=== PATIENT | female | born 1955 | race Caucasian/White ===

== ENCOUNTER 2019-05-05 08:31 | Outpatient (CLI) | payer OTHER, SELFPAY ==
--- NOTE | ~2019-05-05 | MM_ITS ---
EXAMINATION: MM screening omid LT w semea HISTORY: Screening left mammogram, history of right mastectomy TECHNIQUE: Craniocaudal and mediolateral oblique 3-D tomosynthesis images were obtained and synthetic 2-D images were generated. CAD analysis was submitted and interpreted. COMPARISON: 05/04/2018, 04/29/2017, 04/23/2016, 12/19/2014 BREAST PARENCHYMAL COMPOSITION: The breasts are heterogeneously dense, which may obscure small masses . FINDINGS: There is no evidence of suspicious mass, calcification, or architectural distortion to sugg est malignancy in either breast. There has been no suspicious interval change. IMPRESSION: 1. No mammographic evidence of malignancy. 2. Recommend routine screening mammography in one year. BI-RADS Category 1: Negative Reviewed, dictated and finalized at location A. OR WRITER
== END 2019-05-05 08:32 | disposition home or self-care (01) ==
LOC: ANHIMG 08:34
PROVIDERS: PCP Family Medicine; Visit Provider Obstetrics & Gynecology Gynecology
DX: Z12.31 Encounter for screening mammogram for malignant neoplasm of breast (principal)
CPT/HCPCS: 77063; 77067

== ENCOUNTER → 2019-12-07 11:55 | Outpatient (CLI) | payer OTHER, SELFPAY ==
--- NOTE | ~2019-12-07 | XR_ITS ---
XR hip LT min 2V, XR femur LT min 2V 12/07/2019 13:25 Indication: Left hip and leg pain Procedure: 2 views left hip left femur Comparison: No prior studies for comparison. Findings: Mild osteoarthritis of the left hip. Normal mineralization. No acute fracture or traumatic malalignment. No focal soft tissue abnormality. No radiopaque foreign bodies. Impression: 1: Mild osteoarthritis of the left hip. Reviewed, dictated and finalized at location A. Impression: 1: Mild osteoarthritis of the left hip. Impression: 1: Mild osteoarthritis of the left hip.
== END ==
PROVIDERS: PCP Physician Assistant; Visit Provider Physician Assistant
DX: M25.552 Pain in left hip (principal); M16.12 Unilateral primary osteoarthritis, left hip
CPT/HCPCS: 73502; 73552

== ENCOUNTER 2020-07-04 08:02 | Outpatient (CLI) | payer OTHER, SELFPAY ==
--- NOTE | ~2020-07-04 | DEXA_ITS ---
Bone Density Report Name: Ofelia Azul Age: 65 Sex: Female Ethnicity: White Date of : 1955 Indication: monitoring treatment; height loss; cancer; asthma or emphysema; Referring Provider: Leanne Crouch Study: Bone densitometry was performed. Exam Date: July 04, 2020 Accession number: [id number] Bone Density: Region BMD T-score Z-score Classification AP Spine (L1, L2) 0.935 -0.4 1.2 Normal Femoral Neck (Left) 0.728 -1.1 0.3 Osteopenia Total Hip (Left) 0.938 0.0 1.1 Normal Total Hip Bilateral Avg 0.931 -0.1 1.1 Normal Femoral Neck (Right) 0.743 -1.0 0.5 Normal Total Hip (Right) 0.922 -0.2 1.0 Normal World Health Organization criteria for BMD impression classify patients as: Normal (T-score at or above -1.0), Osteopenia (T-score between -1.0 and -2.5), or Osteoporosis (T-score at or below -2.5). 10-year Fracture Risk: FRAX not reported because: Treated for osteoporosis Previous Exams: Region Exam Age BMD T-score BMD Change BMD Change Date g/cm2 vs Baseline vs Previous AP Spine(L1, L2) 07/04/2020 65 0.935 -0.4 -0.079(-7.8%)# -0.027(-2.8%)* 05/30/2016 61 0.963 -0.1 -0.052(-5.1%)# -0.027(-2.7%)# 07/12/2011 56 0.990 0.1 -0.025(-2.4%)# -0.025(-2.4%)# 04/06/2007 52 1.014 0.3 Total Hip(Left) 07/04/2020 65 0.938 0.0 -0.024(-2.5%)# 0.011(1.2%) 05/30/2016 61 0.926 -0.1 -0.035(-3.7%)# -0.037(-3.8%)# 07/12/2011 56 0.963 0.2 0.002(0.2%)# 0.002(0.2%)# 04/06/2007 52 0.961 0.2 Total Hip(Right) 07/04/2020 65 0.922 -0.2 -0.022(-2.3%)# 0.011(1.2%) 05/30/2016 61 0.911 -0.3 -0.033(-3.5%)# -0.003(-0.4%)# 07/12/2011 56 0.914 -0.2 -0.030(-3.1%)# -0.030(-3.1%)# 04/06/2007 52 0.944 0.0 *Denotes significance at 95% confidence level, LSC for AP Spine = 0.022 g/cm2, LSC for Total Hip = 0.027 g/cm2 Clinical Information Provided by Patient: Is being treated for osteoporosis Has used the following medications: Fosamax (i.e. alendronate), Vitamin D, Calcium Has the following medical conditions: Asthma or Emphysema, Cancer Patient maximum height was 68 Menopause Age: 42 Drinks caffeinated beverages Onset of menses at age 15 Number of children 0 Impression: The patient has low bone mass, based on the Left Femoral Neck T-score. The BMD for the AP Spine(L1, L2) decreased, changing by -2.8% since the last DXA exam. Discussion: SIGNIFICANT BONE LOSS OBSERVED. Adherence to therapy
--- NOTE | ~2020-07-04 | MM_ITS ---
EXAMINATION: MM screening omid LT w seema HISTORY: Screening mammogram TECHNIQUE: Craniocaudal and mediolateral oblique 3-D tomosynthesis images were obtained and synthetic 2-D images were generated. CAD analysis was submitted and interpreted. COMPARISON: May 05, 2019 left digital screening mammogram May 04, 2018 left digital screening mammogram April 29, 2017 left digital screening mammogram BREAST PARENCHYMAL COMPOSITION: The breasts are heterogeneously dense, which may obscure small masses . FINDINGS: There is no evidence of suspicious mass, calcification, or architectural distortion to sugg est malignancy in either breast. There has been no suspicious interval change. IMPRESSION: 1. No mammographic evidence of malignancy. 2. Recommend routine screening mammography in one year. BI-RADS Category 1: Negative Reviewed, dictated and finalized at location A.
== END 2020-07-04 08:03 | disposition home or self-care (01) ==
LOC: ANHIMG 08:07
PROVIDERS: PCP Physician Assistant; Visit Provider Obstetrics & Gynecology Gynecology
DX: Z12.31 Encounter for screening mammogram for malignant neoplasm of breast (principal); Z78.0 Asymptomatic menopausal state; M85.852 Other specified disorders of bone density and structure, left thigh
CPT/HCPCS: 77063; 77067; 77080

== ENCOUNTER 2021-09-13 08:55 | Outpatient (CLI) | payer OTHER, SELFPAY ==
--- NOTE | ~2021-09-13 | MM_ITS ---
EXAMINATION: MM scrn omid implant LT w seema HISTORY: Comparison to multiple prior studies sequentially, with oldest reviewed study dated 015. TECHNIQUE: Craniocaudal and mediolateral oblique 3-D tomosynthesis images with implant displacement a nd synthetic 2-D images were generated. Craniocaudal and mediolateral oblique views of the breasts wi thout implant displacement were obtained using full field digital mammography. CAD analysis was submi tted and interpreted. COMPARISON: Comparison to multiple prior studies sequentially, with oldest reviewed study dated 07/2014. BREAST PARENCHYMAL COMPOSITION: The breasts are heterogenously dense, which may obscure small masses FINDINGS: There is no evidence of suspicious mass, calcification, or architectural distortion to sugg est malignancy in the left breast. There has been no suspicious interval change. IMPRESSION: 1. No mammographic evidence of malignancy. 2. Recommend routine screening mammography in one year. BI-RADS Category 1: Negative Reviewed, dictated and finalized at location A.
== END 2021-09-13 08:56 | disposition home or self-care (01) ==
PROVIDERS: PCP Physician Assistant; Visit Provider Nurse Practitioner
DX: Z12.31 Encounter for screening mammogram for malignant neoplasm of breast (principal)
CPT/HCPCS: 77063; 77067

== ENCOUNTER 2022-07-29 09:25 | Outpatient (CLI) | payer MEDICARE, OTHER, SELFPAY ==
--- NOTE | ~2022-07-29 | MR_ITS ---
EXAMINATION: MR breast BI wo/w con INDICATION: Elevated risk of breast cancer, personal history of right breast cancer TECHNIQUE: Axial VIBRANT pre and dynamic post contrast, Sagittal VIBRANT post contrast, Axial T2 STIR ASSET COMPARISON: Prior mammograms dated 09/13/2021, 07/04/2020, and 05/05/2019 CONTRAST: Multihance, 15 cc BREAST COMPOSITION: Heterogeneous fibroglandular tissue FINDINGS: RIGHT BREAST: There is mild background parenchymal enhancement. There are changes of right mastectomy . No abnormal enhancement is identified after contrast administration. There are no pathologically en larged lymph nodes.. LEFT BREAST: There is mild background parenchymal enhancement. No abnormal enhancement is present aft er contrast administration. No pathologically enlarged axillary or internal mammary lymph nodes are i dentified. An intramammary lymph node is noted in the upper outer quadrant of the breast. IMPRESSION: 1. Patient status post right mastectomy, otherwise unremarkable breast MRI. Routine scanner mammograp hy is recommended. BI-RADS Category 2: Benign finding(s). Reviewed, dictated and finalized at location A. IMPRESSION: 1. Patient status post right mastectomy, otherwise unremarkable breast MRI. Rou alexa scanner mammography is recommended. BI-RADS Category 2: Benign finding(s).
== END 2022-07-29 09:26 | disposition home or self-care (01) ==
PROVIDERS: PCP Physician Assistant; Visit Provider Obstetrics & Gynecology Gynecology
DX: Z85.3 Personal history of malignant neoplasm of breast (principal)
CPT/HCPCS: 77049; A9577; C8908

== ENCOUNTER 2022-10-08 00:26 | Day surgery (SDC) | payer MEDICARE, OTHER, SELFPAY ==
[2022-10-02 14:58] VITALS: BMI 25.4
[2022-10-08 07:30] VITALS: BP 148/73; PULSE 85; RESP 20; TEMP 36.2; O2SAT 95
[2022-10-08] MEDS: LACTATED RINGERS 1,000 ML 150 ML IV CONT (07:41)
--- NOTE | 2022-10-08 08:31 | PM.HPGS ---
History of Present Illness History of Present Illness Consent: Risks, benefits, and alternatives have been discussed and questions answered. Patient agrees to proceed with procedure. Chief complaint: hx of colon polyps Narrative: Ofelia Azul is a 67 year old female with colon polyp in 2018 Review of Systems Constitutional: Constitutional: Denies headache(s) and Denies weakness Eyes: Eyes: Denies blurry vision ENT: Reports Normal hearing present, Denies headache(s) and Denies neck pain Cardiovascular: Cardiovascular: Denies chest pain and Denies dyspnea Respiratory: Respiratory: Denies dyspnea Gastrointestinal: Gastrointestinal: Reports no additional gastrointestinal complaints Genitourinary: Genitourinary: Denies dysuria Musculoskeletal: Musculoskeletal: Denies neck pain Integumentary/Breasts: Skin/Breast: Denies dry skin Neurologic: Reports Normal hearing present, Denies headache(s) and Denies weakness Psychiatric: Psychiatric: Denies anxiety Endocrine: Endocrine: Denies change in body appearance Hematologic/Lymphatic: Hematologic/Lymphatic: Denies easy bleeding Allergic/Immunologic: Allergic/Immunologic: Denies urticaria PMFSH Past Medical History Medical History (Updated 10/08/22 @ 08:32 by Joe Loving MD) Colon polyp FH: mastectomy Wrist fracture Family History Family History Sibling Breast cancer Grandparent Cerebrovascular accident Mother Abdominal aneurysm Social History Social History (Updated 02/26/22 @ 13:18 by Huyen Vale CMA) Smoking packs per day: 1 Smoking cigarettes per day: 20.0 Years smoked: 40 Smoking pack-years: 40.00 Smoking status: Former smoker Tobacco type: cigarettes Second hand tobacco smoke exposure: No Smoking end date: 01/02/19 Alcohol intake: current Drinks per week: 3 Substance use: never Substance use type: does not use Lack of Transportation: No Lack of Food: Never True Current Housing: I Have Housing Concerned About Future Housing: No Difficulty Paying Gas/Electric Bills: No Difficulty Paying for Meds: No Currently Unemployed: No Education: Decline to Answer Difficulty w/ Childcare or Family Care: No Living arrangements: with family Spiritual care concerns: No Meds Home Medications and Allergies Home Medications Medication Instructions Recorded Confirmed Type albuterol sulfate 90 mcg/actuation 1 puff inhalation Q4H PRN 08/14/21 10/02/22 History aerosol inhaler (ProAir HFA) Shortness Of Breath Or Wheezing amlodipine 5 mg tablet 5 mg PO DAILY 08/14/21 10/02/22 History cholecalciferol (vitamin D3) 50 50 mcg PO DAILY 08/14/21 10/02/22 History mcg (2,000 unit) capsule clobetasol 0.05 % topical ointment 1 applic topical DAILY 08/14/21 10/02/22 History estradiol 2 mg (7.5 mcg/24 hour) 1 vag ring vaginal [id number] 08/14/21 10/02/22 History vaginal ring (Estring) lactobacillus combination no.9 4 4,000 mmu cells PO DAILY 08/14/21 10/02/22 History billion cell capsule (Adult 50 Plus Probiotic) umeclidinium 62.5 mcg-vilanterol 1 inh inhalation DAILY 08/14/21 10/02/22 History 25 mcg/actuation powdr for inhalation (Anoro Ellipta) acetaminophen 650 mg 650 mg PO BID 10/02/22 10/02/22 History tablet,extended release Allergies Allergy/AdvReac Type Severity Reaction Status Date / Time No Known Allergies Allergy Unknown Verified 10/08/22 07:29 Vital Signs Vital Signs - 24 hr 10/08/22 07:30 Temperature 97.1 F L Pulse Rate 85 Respiratory Rate 20 Blood Pressure 148/73 H Pulse Oximetry 95 Oxygen Delivery Room Air Exam Const: General: comfortable and no acute distress HENMT: Face/Nose/Sinus: Normal nares present Eyes: General: appearance normal, both eyes and all related structures Neck: Neck: no JVD Resp: Auscultation: clear to auscultation bilaterally Cardio: Rate: r
--- NOTE | 2022-10-08 08:39 | WPDANESEPPF ---
Anes - Initial Pre Proc Eval Procedure: Operation Date: 10/08/22 08:45 Proposed Procedures p Colonoscopy - Joe Loving MD Date/Time: 10/08/22 08:39 Surgeon: Joe Loving MD Pre Op Diagnosis: hx of colon polyps Patient Data Age: 67 Gender: F Height: 1.71 m Weight: 74.1 kg Last Vital Signs Temp 97.1 F L 10/08/22 07:30 Pulse 85 10/08/22 07:30 Resp 20 10/08/22 07:30 BP 148/73 H 10/08/22 07:30 Pulse Ox 95 10/08/22 07:30 O2 Del Method Room Air 10/08/22 07:30 Allergies Allergy/AdvReac Type Severity Reaction Status Date / Time No Known Allergies Allergy Unknown Verified 10/08/22 07:29 Home Medications Medication Instructions Recorded Confirmed Type albuterol sulfate 90 mcg/actuation 1 puff inhalation Q4H PRN 08/14/21 10/02/22 History aerosol inhaler (ProAir HFA) Shortness Of Breath Or Wheezing amlodipine 5 mg tablet 5 mg PO DAILY 08/14/21 10/02/22 History cholecalciferol (vitamin D3) 50 50 mcg PO DAILY 08/14/21 10/02/22 History mcg (2,000 unit) capsule clobetasol 0.05 % topical ointment 1 applic topical DAILY 08/14/21 10/02/22 History estradiol 2 mg (7.5 mcg/24 hour) 1 vag ring vaginal [id number] 08/14/21 10/02/22 History vaginal ring (Estring) lactobacillus combination no.9 4 4,000 mmu cells PO DAILY 08/14/21 10/02/22 History billion cell capsule (Adult 50 Plus Probiotic) umeclidinium 62.5 mcg-vilanterol 1 inh inhalation DAILY 08/14/21 10/02/22 History 25 mcg/actuation powdr for inhalation (Anoro Ellipta) acetaminophen 650 mg 650 mg PO BID 10/02/22 10/02/22 History tablet,extended release Patient hx anesthesia problems: none Family hx anesthesia problems: none Results Review: All pre-operative results and documents have been reviewed as part of the pre-operative evaluation. [facility] Past Medical History Medical History (Updated 10/08/22 @ 08:32 by Joe Loving MD) Colon polyp FH: mastectomy Wrist fracture Family History Family History Sibling Breast cancer Grandparent Cerebrovascular accident Mother Abdominal aneurysm Social History Social History (Updated 02/26/22 @ 13:18 by Huyen Vale CMA) Smoking packs per day: 1 Smoking cigarettes per day: 20.0 Years smoked: 40 Smoking pack-years: 40.00 Smoking status: Former smoker Tobacco type: cigarettes Second hand tobacco smoke exposure: No Smoking end date: 01/02/19 Alcohol intake: current Drinks per week: 3 Substance use: never Substance use type: does not use Lack of Transportation: No Lack of Food: Never True Current Housing: I Have Housing Concerned About Future Housing: No Difficulty Paying Gas/Electric Bills: No Difficulty Paying for Meds: No Currently Unemployed: No Education: Decline to Answer Difficulty w/ Childcare or Family Care: No Living arrangements: with family Spiritual care concerns: No Anes - Eval Final PreProcedure Day of Procedure 10/08/22 08:39 Patient weight: normal Heart: regular rate and rhythm Lungs: clear to auscultation Airway: Mallampati scale class II Neurological: alert and oriented Last oral intake: >/= 8 hours ASA classification: III Emergent: no Anesthetic plan: proceed Anesthesia type and monitoring: general GIVS and standard monitoring Results Review: All pre-operative results and documents have been reviewed as part of the pre-operative evaluation. Informed Consent: The patient's anesthetic plan and its attendant risks and benefits were discussed with the patient/family/POA. Questions were solicited and answers provided to the satisfaction of the patient/family/POA.
[2022-10-08 08:58] VITALS: BP 132/63; PULSE 77; RESP 32; O2SAT 99
[2022-10-08 09:08] VITALS: BP 129/66; PULSE 71; RESP 21; O2SAT 99
[2022-10-08 09:18] VITALS: BP 135/74; PULSE 67; RESP 27; O2SAT 99
== END 2022-10-08 09:31 | disposition home or self-care (01) ==
PROVIDERS: PCP Physician Assistant; Visit Provider Internal Medicine Gastroenterology
PROC: 0DJD8ZZ Inspection of Lower Intestinal Tract, Via Natural or Artificial Opening Endoscopic (ICD-10-PCS; CPT 45378; principal; 2022-10-08 08:45)
DX: Z12.11 Encounter for screening for malignant neoplasm of colon (principal); K57.30 Diverticulosis of large intestine without perforation or abscess without bleeding; K64.8 Other hemorrhoids; Z86.010 Personal history of colon polyps; Z79.51 Long term (current) use of inhaled steroids; Z87.891 Personal history of nicotine dependence
CPT/HCPCS: G0105; J2704; J7120

== ENCOUNTER → 2022-11-15 14:43 | Outpatient (CLI) | payer MEDICARE, OTHER, SELFPAY ==
--- NOTE | ~2022-11-15 | XR_ITS ---
EXAMINATION: XR shoulder RT min 2V, XR shoulder LT min 2V DATE: 11/15/2022 15:26 INDICATION: Bilateral shoulder pain TECHNIQUE: 1. AP internally and externally rotated, AP oblique externally rotated and axillary views of the left shoulder were obtained. 2. AP internally and externally rotated, AP oblique externally rotated and axillary views of the righ t shoulder were obtained. COMPARISON: None FINDINGS: Normal alignment at both shoulders. No fracture.Polyarticular osteoarthritis at the bilateral should ers, moderate at the right and mild at the left acromioclavicular joints and mild to moderate at the right and moderate to severe at the left glenohumeral joints. Visualized portion of the lungs are sravani ar. Small amount of atherosclerotic calcific lesions seen along the right subclavian artery. There ar e few surgical clips projecting over the left breast and axilla. Soft tissues are otherwise unremarka ble. 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 Reviewed, dictated and finalized at location A. 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
== END ==
PROVIDERS: PCP Physician Assistant; Visit Provider Physician Assistant
DX: M25.511 Pain in right shoulder (principal); M25.512 Pain in left shoulder; M19.012 Primary osteoarthritis, left shoulder; M19.011 Primary osteoarthritis, right shoulder
CPT/HCPCS: 73030

== ENCOUNTER 2023-12-01 09:40 | Emergency (ER) | payer MEDICARE, OTHER, SELFPAY ==
[2023-12-01 09:55] VITALS: BP 159/71; PULSE 85; RESP 18; TEMP 36.2; O2SAT 98
--- NOTE | 2023-12-01 09:57 | ED.EXTPRO ---
HPI - Extremity Problem General Chief complaint: Extremity Problem,Nontraumatic Stated complaint: RT elbow Pain Time Seen by Provider: 12/01/23 10:03 Source: patient, RN notes reviewed and old records reviewed Mode of arrival: ambulatory Limitations: no limitations History of Present Illness HPI Narrative: [id number] patient presents with complaints of right elbow pain that has been present intermittently for 2 months. Patient is an avid golfer, takes meloxicam daily. She wears a brace to the elbow, and ices after playing golf. She reports that symptoms have been worsening. She denies any injury or trauma. She does admit that she believes her symptoms are due to overuse Related Data Home Medications Medication Instructions Recorded Confirmed albuterol sulfate 90 mcg/actuation 1 puff inhalation Q4H PRN 08/14/21 12/01/23 aerosol inhaler (ProAir HFA) Shortness Of Breath Or Wheezing cholecalciferol (vitamin D3) 50 50 mcg PO DAILY 08/14/21 12/01/23 mcg (2,000 unit) capsule estradiol 2 mg (7.5 mcg/24 hour) 1 vag ring vaginal [id number] 08/14/21 12/01/23 vaginal ring (Estring) lactobacillus combination no.9 4 4,000 mmu cells PO DAILY 08/14/21 12/01/23 billion cell capsule (Adult 50 Plus Probiotic) umeclidinium 62.5 mcg-vilanterol 1 inh inhalation DAILY 08/14/21 12/01/23 25 mcg/actuation powdr for inhalation (Anoro Ellipta) Allergies Allergy/AdvReac Type Severity Reaction Status Date / Time No Known Allergies Allergy Unknown Verified 12/01/23 09:42 Review of Systems Review of Systems: All systems reviewed & are unremarkable except as noted in HPI and below Constitutional: Constitutional: Reports no additional constitutional complaints ENT: Reports system reviewed and no additional complaints, except as documented Cardiovascular: Cardiovascular: Reports no additional cardiovascular complaints Respiratory: Respiratory: Reports no additional respiratory complaints Gastrointestinal: Gastrointestinal: Reports no additional gastrointestinal complaints Musculoskeletal: Musculoskeletal: Reports no additional musculoskeletal complaints and Reports as per HPI PMFSH Past Medical History Medical History Arthritis COPD (chronic obstructive pulmonary disease) History of breast cancer Hypertension Psoriasis Surgical History Surgical History History of reduction surgery of left breast 04/2001 History of removal of Port-a-Cath port a cath placement 1999 failed port a cath removal 01/27/2012 successful removal 2011 History of removal of right breast implant History of removal of tympanostomy tube partial R tube 1984 History of resection of rib History of right breast biopsy 1999 History of right breast implant 2001 adjusted implant 07/15/2001 History of right mastectomy modified radical 1999 History of surgery on wrist R wrist fracture repair 1989 History of total left hip replacement 10/15/2020 History of wisdom tooth extraction 1974 Family History Family History Sibling Breast cancer Grandparent Cerebrovascular accident Mother Abdominal aneurysm Unknown Osteoporosis High cholesterol Asthma COPD (chronic obstructive pulmonary disease) Hypertension Social History Social History Years smoked: 40 Smoking status: Former smoker Tobacco type: cigarettes Second hand tobacco smoke exposure: No Smoking end date: 01/02/19 Alcohol intake: current Drinks per week: 2 Substance use: never Substance use type: does not use Do You Feel Safe in your Home?: Yes Lack of Transportation: No Lack of Food: Never True Current Housing: I Have Housing Concerned About Future Housing: No Difficulty Paying Gas/Electric Bills: No Difficulty
== END 2023-12-01 10:12 | disposition home or self-care (01) ==
PROVIDERS: Emergency Provider Nurse Practitioner Family; PCP Family Medicine
DX: M77.11 Lateral epicondylitis, right elbow (principal); Z87.891 Personal history of nicotine dependence; M19.90 Unspecified osteoarthritis, unspecified site; J44.9 Chronic obstructive pulmonary disease, unspecified; I10 Essential (primary) hypertension; L40.9 Psoriasis, unspecified; Z85.3 Personal history of malignant neoplasm of breast; Z90.11 Acquired absence of right breast and nipple; Z96.642 Presence of left artificial hip joint
CPT/HCPCS: 99213; G0463

== ENCOUNTER 2024-01-02 10:19 | Emergency (ER) | payer MEDICARE, OTHER, SELFPAY ==
--- NOTE | 2024-01-02 10:23 | ED.URI ---
HPI - URI/Sore Throat General Chief Complaint: Upper Respiratory Infection Stated Complaint: head cold / congestion Time Seen by Provider: 01/02/24 10:30 Source: patient, RN notes reviewed and old records reviewed Mode of arrival: ambulatory Limitations: no limitations History of Present Illness HPI Narrative: 68-year-old female presents to the [facility] with complaints sinus congestion, chills, cough. Symptoms started Friday, 3 days ago. Patient reports a history of COPD states that she is feeling little bit better today however does not wanted to move to her lungs. Has a history of similar symptoms a waist getting worse. States that she did take flu and cold medication Treatments prior to arrival: cold medicine Related Data Home Medications Medication Instructions Recorded Confirmed albuterol sulfate 90 mcg/actuation 1 puff inhalation Q4H PRN 08/14/21 01/02/24 aerosol inhaler (ProAir HFA) Shortness Of Breath Or Wheezing cholecalciferol (vitamin D3) 50 50 mcg PO DAILY 08/14/21 01/02/24 mcg (2,000 unit) capsule estradiol 2 mg (7.5 mcg/24 hour) 1 vag ring vaginal [id number] 08/14/21 01/02/24 vaginal ring (Estring) lactobacillus combination no.9 4 4,000 mmu cells PO DAILY 08/14/21 01/02/24 billion cell capsule (Adult 50 Plus Probiotic) umeclidinium 62.5 mcg-vilanterol 1 inh inhalation DAILY 08/14/21 01/02/24 25 mcg/actuation powdr for inhalation (Anoro Ellipta) Allergies Allergy/AdvReac Type Severity Reaction Status Date / Time No Known Allergies Allergy Unknown Verified 01/02/24 10:22 Review of Systems Review of Systems: All systems reviewed & are unremarkable except as noted in HPI and below Constitutional: Constitutional: Reports as per HPI Eyes: Eyes: Reports no additional eye complaints ENT: Reports as per HPI and Reports nasal congestion Cardiovascular: Cardiovascular: Reports no additional cardiovascular complaints, Denies chest pain and Denies dyspnea Respiratory: Respiratory: Reports as per HPI, Denies chest congestion, Reports cough and Denies dyspnea Gastrointestinal: Gastrointestinal: Reports no additional gastrointestinal complaints, Denies abdominal pain, Denies nausea and Denies vomiting Musculoskeletal: Musculoskeletal: Reports no additional musculoskeletal complaints Integumentary/Breasts: Skin/Breast: Reports system reviewed and no additional complaints, except as docu Neurologic: Reports system reviewed and no additional complaints, except as documented Psychiatric: Psychiatric: Reports no additional psychiatric complaints Allergic/Immunologic: Allergic/Immunologic: Reports no additional allergic/immunologic complaints [facility] Past Medical History Medical History Arthritis COPD (chronic obstructive pulmonary disease) History of breast cancer Hypertension Psoriasis Surgical History Surgical History History of reduction surgery of left breast 04/2001 History of removal of Port-a-Cath port a cath placement 1999 failed port a cath removal 01/27/2012 successful removal 2011 History of removal of right breast implant History of removal of tympanostomy tube partial R tube 1983 History of resection of rib History of right breast biopsy 1999 History of right breast implant 2001 adjusted implant 07/15/2001 History of right mastectomy modified radical 1999 History of surgery on wrist R wrist fracture repair 1989 History of total left hip replacement 10/15/2020 History of wisdom tooth extraction 1974 Family History Family History Sibling Breast cancer Grandparent Cerebrovascular accident Mother Abdominal aneurysm Unknown Osteoporosis High cholesterol Asthma COPD (chronic obstructive pulmonary disease) Hypertension Social History Social History (Reviewed 01/02/24 @ 14:02 by
[2024-01-02 10:31] VITALS: BP 139/68; PULSE 77; RESP 16; TEMP 36.7; O2SAT 97
[2024-01-02 10:51] LABS: EDCOVIDSCREEN Negative (Negative); EDINFLUASCREEN Negative (Negative); EDINFLUBSCREEN Negative (Negative)
== END 2024-01-02 11:01 | disposition home or self-care (01) ==
PROVIDERS: Emergency Provider Nurse Practitioner; PCP Family Medicine
DX: J01.90 Acute sinusitis, unspecified (principal); J44.9 Chronic obstructive pulmonary disease, unspecified; I10 Essential (primary) hypertension; Z79.899 Other long term (current) drug therapy; Z20.822 Contact with and (suspected) exposure to COVID-19; Z85.3 Personal history of malignant neoplasm of breast; Z87.891 Personal history of nicotine dependence
CPT/HCPCS: 87426; 87804; 99213; G0463

== ENCOUNTER 2024-01-16 09:59 | Outpatient (CLI) | payer MEDICARE, OTHER, SELFPAY ==
--- NOTE | ~2024-01-16 | XR_ITS ---
Right Shoulder Technique: AP and scapular Y views were obtained. Clinical History: Osteoarthritis Findings: No fracture or dislocation is seen. Osseous alignment is anatomic. The glenohumeral and acr omioclavicular joint spaces are preserved. Soft tissues are unremarkable. Impression: Unremarkable right shoulder radiographs. Reviewed, dictated and finalized at location . Impression: Unremarkable right shoulder radiographs.
--- NOTE | ~2024-01-16 | XR_ITS ---
Left Shoulder Technique: AP and scapular Y views were obtained. Clinical History: Osteoarthritis Findings: No fracture or dislocation is seen. Osseous alignment is anatomic. The glenohumeral joint d emonstrates mild degenerative change. There is minimal AC joint degenerative change. Soft tissues are unremarkable. Impression: Degenerative changes, as noted above. Reviewed, dictated and finalized at location . Impression: Degenerative changes, as noted above.
== END 2024-01-16 10:00 | disposition home or self-care (01) ==
LOC: ANHIMG 10:04
PROVIDERS: PCP Family Medicine; Visit Provider Physician Assistant Surgical
DX: M19.011 Primary osteoarthritis, right shoulder (principal); M19.012 Primary osteoarthritis, left shoulder
CPT/HCPCS: 73030

== ENCOUNTER 2024-04-07 08:10 | Emergency (ER) | payer MEDICARE, OTHER, SELFPAY ==
[2024-04-07 08:27] VITALS: BP 163/84; PULSE 94; RESP 16; TEMP 37.1; O2SAT 97
--- NOTE | 2024-04-07 08:44 | ED.GENADULT ---
HPI - General Adult General Chief complaint: Ear Stated complaint: lt earache, skin tear left arm Time Seen by Provider: 04/07/24 08:26 Source: patient and RN notes reviewed Mode of arrival: ambulatory Limitations: no limitations History of Present Illness HPI narrative: Patient presents today complaining a skin tear to her left forearm that occurred 4 days ago when she ran into a door frame at home. She has been applying Neosporin and dressing the area. She is not up-to-date on her tetanus vaccine. She is also complaining of drainage from the left ear. She has had issues in the ear for a couple of years and has seen ENT in the past. She has previously been prescribed an ear drop of neomycin polymyxin and hydrocortisone and states this has worked. Denies pain or decreased hearing. She has been applying vaseline and a cotton ball to the canal to keep it dry as previously directed. She is waiting for an ENT appointment in June. Denies any additional URI symptoms. Related Data Home Medications ?Medication ?Instructions ?Recorded ?Confirmed ?Last Taken ?Type cholecalciferol (vitamin D3) 50 50 mcg PO DAILY 08/14/21 04/07/24 Unknown History mcg (2,000 unit) capsule estradiol 2 mg (7.5 mcg/24 hour) 1 vag ring vaginal [id number] 08/14/21 04/07/24 Unknown History vaginal ring (Estring) lactobacillus combination no.9 4 4,000 mmu cells PO DAILY 08/14/21 04/07/24 Unknown History billion cell capsule (Adult 50 Plus Probiotic) umeclidinium 62.5 mcg-vilanterol 1 inh inhalation DAILY 08/14/21 04/07/24 Unknown History 25 mcg/actuation powdr for inhalation (Anoro Ellipta) clobetasol 0.05 % topical ointment 1 applic topical PRN 04/07/24 04/07/24 Unknown History clotrimazole-betamethasone 1 1 applic topical Q12H 04/07/24 04/07/24 Unknown History %-0.05 % topical cream Allergies Allergy/AdvReac Type Severity Reaction Status Date / Time No Known Allergies Allergy Unknown Verified 04/07/24 08:24 Review of Systems Review of Systems: CONSTITUTIONAL: Denies body aches, fever, chills, or sweats. EYES: Denies visual changes, redness, or discharge. ENT: Denies rhinorrhea, congestion, sore throat, or otalgia.+ left ear drainage CARDIOVASCULAR: Denies chest pain, palpitations, or edema. RESPIRATORY: Denies cough or dyspnea. GASTROINTESTINAL: Denies abdominal pain, nausea, vomiting, or diarrhea. GENITOURINARY: Denies dysuria or hematuria. SKIN: + left forearm skin tears. MUSCULOSKELETAL: Denies back pain, joint pain, or myalgia. NEUROLOGIC: Denies headache, numbness, tingling, or weakness. PSYCH: Denies depression or anxiety. [facility] Past Medical History Medical History Hypertension Psoriasis History of breast cancer COPD (chronic obstructive pulmonary disease) Arthritis Surgical History Surgical History History of resection of rib History of total left hip replacement 10/15/2020 History of removal of right breast implant History of reduction surgery of left breast 04/2001 History of right breast implant 2001 adjusted implant 07/15/2001 History of right mastectomy modified radical 1999 History of removal of Port-a-Cath port a cath placement 1999 failed port a cath removal 01/27/2012 successful removal 2011 History of right breast biopsy 1999 History of surgery on wrist R wrist fracture repair 1989 History of removal of tympanostomy tube partial R tube 1984 History of wisdom tooth extraction 1974 Family History Family History Sibling Breast cancer Grandparent Cerebrovascular accident Mother Abdominal aneurysm Unknown Osteoporosis High cholesterol Asthma COPD (chronic obstructive pulmonary disease) Hypertension Social History Social History Years smoked: 40 Smoking status: Former smoker Tobacco type: cigarettes Second hand tobacco smoke exposure: No Smoking end date: 01/02/19 Alcohol intake: current Drinks per week: 2 Substance use: never Substance use type: does not use Do You Feel Safe in your Home?: Yes Lack of Transportation: No Lack of Food: Never True Current Housing: I Have Housing Concerned About Future Housing: No Difficulty Paying Gas/Electric Bills: No Difficulty Paying for Meds: No Currently Unemployed: No Education: High School Diploma/GED Difficulty w/ Childcare or Family Care: No Living arrangements: with family Occupation/Education: retired Gender identity (if verbalized by the patient): Female Sexual Orientation (if Verbalized by the Patient): Straight or Heterosexual Spiritual care concerns: No Comments At time of signature, I have reviewed and agree with nursing past medical, surgical, social and family history unless otherwise noted. Please see nursing chart for further information. There is no relevant family history pertinent to the presenting complaint Exam Narrative: GENERAL: Well-appearing, well-nourished, and in no acute distress. HEAD: Normocephalic, atraumatic. EYES: EOMI. No redness or drainage. Conjunctivae normal. ENT: Mucous membranes pink and moist. Nares clear. Left ear: No movement or tragal tenderness. Some mild irritation and moistness of the ear canal without edema. Left TM is very slightly injected, and does show purulent discharge that takes up half of the TM. NECK: Normal AROM. Supple. No lymphadenopathy. CHEST: No respiratory distress. EXTREMITIES: Normal range of motion. No edema. Three skin tears of the left forearm each measuring approximately 2 x 2 cm, superficial and almost fully dry. No signs of infection. SKIN: Warm, dry, no rash. Capillary refill normal. Normal skin turgor. NEURO: No focal deficits. Alert and oriented x3. Gait steady. PSYCH: Normal affect. No signs of depression or anxiety. Course Course Level of Care: Express Care Visit Vital Signs Vital signs: Vital Signs Temperature 98.7 F 04/07/24 08:27 Pulse Rate 94 04/07/24 08:27 Respiratory Rate 16 04/07/24 08:27 Blood Pressure 163/84 H 04/07/24 08:27 Pulse Oximetry 97 04/07/24 08:27 Temperature 98.7 F 04/07/24 08:27 Pulse Rate 94 04/07/24 08:27 Respiratory Rate 16 04/07/24 08:27 Blood Pressure 163/84 H 04/07/24 08:27 Pulse Oximetry 97 04/07/24 08:27 Reviewed Medical Decision Making MDM Narrative Medical decision making narrative: Tetanus shot updated. Patient will be given a prescription of her previous ear drops as well as some Augmentin for the suppurative otitis media. Skin tears appear to be on their way healing properly, but anticipatory guidance given for both the ear and skin tears. Differential Diagnosis Differential Diagnosis: Otitis media, otitis externa, ruptured TM, serous otitis, cerumen impaction, seborrheic dermatitis, eczema, skin tear, cellulitis Vital Signs Vital Signs: Vital Signs Temperature 98.7 F 04/07/24 08:27 Pulse Rate 94 04/07/24 08:27 Respiratory Rate 16 04/07/24 08:27 Blood Pressure 163/84 H 04/07/24 08:27 Pulse Oximetry 97 04/07/24 08:27 Temperature 98.7 F 04/07/24 08:27 Pulse Rate 94 04/07/24 08:27 Respiratory Rate 16 04/07/24 08:27 Blood Pressure 163/84 H 04/07/24 08:27 Pulse Oximetry 97 04/07/24 08:27 Critical Care Time Critical Care Time Critical Care Time: No Discharge Plan Discharge Clinical Impression: Acute suppur left otitis media w/o spontan rupture tympanic membrane, Skin tear of forearm without complication Patient Disposition: Home, Self-Care Condition: Stable Instructions: Antibiotic Form, Ear Infection (ED), Skin Tear (ED) Additional Instructions: Please take the Augmentin for your ear infection and use ear drops as directed. Wash your skin tears once daily with soap and water and keep covered until healed or scabbed over. You may apply some Vaseline or Neosporin daily. Monitor for any signs of infection such as redness, swelling, increased pain or drainage, and see your doctor if you note any. Your tetanus shot has been updated today. Your blood pressure was elevated above 120/80 today at Urgent Care. This puts you above the threshold for follow up. Please schedule a followup visit with your personal physician as soon as possible, for further evaluation and treatment. Even blood pressure exceeding 120/80 may indicate pre-hypertension. Patient Language: Maltese Prescriptions: New amoxicillin-pot clavulanate 875-125 mg tablet 1 tablet PO Q12H 7 Days Qty: 14 0RF [id number] 3.5-10,000-1 mg/mL-unit/mL-% drops,suspension 4 drp LEFT EAR Q8H 7 Days Qty: 10 0RF No Action methylprednisolone [Medrol (Mike)] 4 mg tablets,dose pack See Rx Instructions PO .COMPLEX Qty: 21 0RF Rx Instructions: orally per package directions clobetasol 0.05 % ointment 1 applic TOPICAL PRN clotrimazole-betamethasone 1-0.05 % cream 1 applic TOPICAL Q12H Sebex 2-2 % shampoo 1 applic topical DAILY Qty: 118 5RF Rx Instructions: massage into wet scalp; leave on for 5 mins ; rinse; repeat application ketoconazole 2 % shampoo 1 applic topical 3XW Qty: 120 0RF Anoro Ellipta 62.5-25 mcg/actuation blister with device 1 inh inhalation DAILY Estring 2 mg (7.5 mcg /24 hour) ring 1 vag ring vaginal [id number] Adult 50 Plus Probiotic 4 billion cell capsule 4,000 mmu cells PO DAILY Rx Instructions: administer with a meal cholecalciferol (vitamin D3) 50 mcg (2,000 unit) capsule 50 mcg PO DAILY meloxicam 15 mg tablet See Rx Instructions .ROUTE .COMPLEX Qty: 30 5RF Dose Instruction: TAKE 1 TABLET BY MOUTH DAILY Rx Instructions: TAKE 1 TABLET BY MOUTH DAILY amlodipine 5 mg tablet 5 mg PO DAILY Qty: 90 1RF albuterol sulfate 90 mcg/actuation HFA aerosol inhaler 1 puff inhalation Q4H PRN (Reason: Shortness Of Breath Or Wheezing) Qty: 8.5 0RF Follow-up/Referrals: Ritesh Casanova MD [Primary Care Provider] - Time of Disposition: 08:53
[2024-04-07] MEDS: TETANUS,DIPHTHERIA,AC PERTUSSIS ADULT (0.5 ML) BOOSTRIX IM (08:53)
== END 2024-04-07 08:58 | disposition home or self-care (01) ==
PROVIDERS: Emergency Provider Nurse Practitioner; PCP Family Medicine
DX: H66.002 Acute suppurative otitis media without spontaneous rupture of ear drum, left ear (principal); S51.812A Laceration without foreign body of left forearm, initial encounter; W22.09XA Striking against other stationary object, initial encounter; Z23 Encounter for immunization; I10 Essential (primary) hypertension; J44.9 Chronic obstructive pulmonary disease, unspecified; M19.90 Unspecified osteoarthritis, unspecified site; L40.9 Psoriasis, unspecified; Z85.3 Personal history of malignant neoplasm of breast; Z90.11 Acquired absence of right breast and nipple; Z96.642 Presence of left artificial hip joint
CPT/HCPCS: 90471; 90715; 99213; G0463

== ENCOUNTER 2024-11-11 08:53 | Outpatient (CLI) | payer MEDICARE, OTHER, SELFPAY ==
--- NOTE | ~2024-11-11 | DEXA_ITS ---
Bone Density Report Name: HAIDER PICKARD Age: 69 Sex: Female Ethnicity: White Date of : 1955 Indication: postmenopausal; screening for osteoporosis; height loss; cancer; Referring Provider: NISHI ABURTO Study: Bone densitometry was performed. Exam Date: November 11, 2024 Accession number: [id number] Bone Density: Region BMD T-score Z-score Classification AP Spine(L2, L3, L4) 1.195 1.1 3.1 Normal Femoral Neck (Right) 0.728 -1.1 0.6 Osteopenia Total Hip (Right) 0.898 -0.4 1.0 Normal World Health Organization criteria for BMD impression classify patients as: Normal (T-score at or above -1.0), Osteopenia (T-score between -1.0 and -2.5), or Osteoporosis (T-score at or below -2.5). 10-year Fracture Risk(1): Major Osteoporotic Fracture 8.7% Hip Fracture 0.8% Reported Risk Factors: [place] (), Neck BMD=0.728, BMI=24.5 (1) FRAX(R) Version 3.08. Fracture probability calculated for an untreated patient. Fracture probability may be lower if the patient has received treatment. Clinical Information Provided by Patient: Has used the following medications: Fosamax (i.e. alendronate), Vitamin D, Calcium Has the following medical conditions: Cancer Patient maximum height was 68 Menopause Age: 42 Does not regularly consume dairy products Drinks caffeinated beverages Onset of menses at age 14 Number of children 0 Impression: The patient has low bone mass, based on the Right Femoral Neck T-score. The patient has an estimated ten-year risk of hip fracture of 0.8% and an estimated ten-year risk of major fracture of 8.7%, based on the WHO FRAX algorithm. Discussion: BONE DENSITY IS LOW AT ONE OR MORE SKELETAL SITES. This patient's lowest T-score is low at one or more skeletal sites. It meets the World Health Organization's (WHO) criteria for ?low bone mass? (T-score between -1.0 and -2.5). The patient's 10-year risk of fracture as calculated by FRAX is less than the threshold where pharmacological therapy is recommended by the National Osteoporosis Foundation (NOF). However, all treatment decisions require clinical judgment and consideration of individual patient factors, including patient preferences, comorbidities, previous drug use, risk factors not captured in the FRAX model (e.g., frailty, falls, vitamin D deficiency, increased bone turnover, interval significant decline in bone density) and possible under or overestimation of fracture risk by FRAX. The patient should follow a healthful lifestyle (good nutrition with adequate calcium and vitamin D, and appropriate weight-bearing exercise). Follow-Up: Consider repeating this study in 2 to 3 years to reassess this patient's status, or sooner if there is some new clinical indication. Reported by: RODY on 11/11/2024 9:37:00 AM. Reviewed, dictated and finalized at location A.
--- OUTSIDE RECORDS SUMMARY | 2024-11-11 08:56 | XMS_ITS | Continuity of Care Document ---
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 It does not include entries that were removed or entered in error. Problem Status Onset Date Problem Type Date of Resolution Comments Source Hearing loss Active Condition [facility] Medications Combined list of outpatient medications from Department of [facility] and [facility] facilities.Medications provided include 1) outpatient medications from the last 15 months, and 2) patient-reported medications. Medication Details Route Status Patient Instructions Prescription Expires Prescription Number Last Dispense Date Ordering Provider Order Date Order Qty Source CLOBETASOL PROPIONATE (clobetasol propionate) , 0.05 %, OINT. (G), TOPICAL, ENCUBE ETHICALS, 15 g TUBE Active [id number] 2023 45 Pharmac y Data Transac tion Service Facilit y Immunizations Combined list of available immunizations from the Department of Defense and Veterans Affairs facilities. Immunization Series Date Given Administered By Site Reaction Lot Number CVX Code Drug Principal Trainer Status Comments Source influenza virus vaccine, whole virus 1 2000 Unknown, Provider [id number] Sanofi Pasteur ([facility]) complet ed influenza virus vaccine, whole virus [facility] tuberculin skin test; purified protein derivative solution, intradermal 1 1999 Unknown, Provider [id number] Curtis (CON) complet ed tuberculi n skin test; purified protein derivativ e solution, intraderm al DoD influenza virus vaccine, whole virus 1 1998 Unknown, Provider [id number] Curtis (CON) complet ed influenza virus vaccine, whole virus DoD influenza virus vaccine, whole virus 1 1997 Unknown, Provider [id number] Sae (Inactive) ([place]) complet ed influenza virus vaccine, whole virus DoD hepatitis A vaccine, adult dosage 2 1997 Unknown, Provider [id number] [address] [place] [address] (SKB) complet ed hepatitis A vaccine, adult dosage DoD measles, mumps and rubella virus vaccine 1 1996 Unknown, Provider 03 () complet ed measles, mumps and rubella virus vaccine DoD influenza virus vaccine, whole virus 1 1996 Unknown, Provider [id number] 16 Sae (Inactive) ([place]) complet ed influenza virus vaccine, whole virus DoD hepatitis A vaccine, adult dosage 1 1996 Unknown, Provider 52 () complet ed hepatitis A vaccine, adult dosage DoD tuberculin skin test; purified protein derivative solution, intradermal 1 1996 Unknown, Provider CON 96 Curtis (CON) complet ed tuberculi n skin test; purified protein derivativ e solution, intraderm al DoD tetanus and diphtheria toxoids, adsorbed, preservative free, for adult use (2 Lf of tetanus toxoid and 2 Lf of diphtheria toxoid) 1 1995 Unknown, Provider 09 () complet tetanus and diphtheri a toxoids, adsorbed, preservat fawn free, for adult use (2 Lf of tetanus toxoid and 2 Lf of diphtheri a toxoid) DoD tetanus and diphtheria toxoids, adsorbed, preservative free, for adult use (2 Lf of tetanus toxoid and 2 Lf of diphtheria toxoid) 1 1995 Unknown, Provider 09 () complet ed tetanus and diphtheri a toxoids, adsorbed, preservat fawn free, for adult use (2 Lf of tetanus toxoid and 2 Lf of diphtheri a toxoid) DoD yellow fever vaccine 1 1988 Unknown, Provider 37 () complet yellow fever vaccine [facility] yellow fever vaccine 1 1988 Unknown, Provider 37 () complet yellow fever vaccine [facility] typhoid vaccine, parenteral, acetone-kille d, dried ([place] ) 3 1987 Unknown, Provider 53 () complet typhoid vaccine, parentera l, acetone-k illed, dried ([place] ) [facility] trivalent poliovirus vaccine, live, oral 1 1978 Unknown, Provider 02 () complet trivalent polioviru s vaccine, live, oral [facility] trivalent poliovirus vaccine, live, oral 1 1978 Unknown, Provider 02 () complet trivalent polioviru s vaccine, live, oral [facility] Encounters Combined list of: 1) Encounters from Department of Veterans Affairs facilities going backup to the last 18 months, not all [place] inpatient encounters are included; 2) Encounters from the Department of Defense facilities going backup to 280 months. Location Location Details Encounter Type Encounter Number Reason For Visit Attending Provider ADM Date DC Date Status Disposition Source [facility] Outpatient Encounter [id number] 6 11/07 [facility] Procedures Combined list of: 1) Procedures from Department of Veterans Affairs facilities going back up to thelast 18 months, not all [place] non-surgical procedures are included; 2) All procedures from the Department of Defense facilities. Procedure Procedure Type Code Date Perfomer Comments Sourc e Collection Of Blood Specimen Fr Implant Venous Acce Device Collection Of Blood Specimen Fr Implant Venous Access Device [id number] 07/14/2003 ARNOLD GARCIA Injection, heparin sodium, (heparin lock flush), per 10 units 07/14/[address] Supervised Injection Intravenous Supervised Injection Intravenous [id number] 07/14/2003 ARNOLD GARCIA INJECTION, HEPARIN SODIUM, (HEPARIN LOCK FLUSH), PER 10 UNITS 07/14/2003 [facility]D INJECTION, HEPARIN SODIUM, (HEPARIN LOCK FLUSH), PER 10 UNITS 06/22/2003 DoD INJECTION, HEPARIN SODIUM, (HEPARIN LOCK FLUSH), PER 10 UNITS 02/22/2003 DoD INJECTION, HEPARIN SODIUM, (HEPARIN LOCK FLUSH), PER 10 UNITS 11/04/2002 DoD INJECTION, HEPARIN SODIUM, (HEPARIN LOCK FLUSH), PER 10 UNITS 09/01/2002 DoD INJECTION, HEPARIN SODIUM, (HEPARIN LOCK FLUSH), PER 10 UNITS 06/28/2002 [facility]D COLLECTION OF BLOOD SPECIMEN FROM A COMPLETELY IMPLANTABLE VENOUS ACCESS DEVICE 02/24/2002 DoD Social History Combined list of available smoking, tobacco, and other social history from Department of Defense and Veterans Affairs facilities. Social History Type Response Date Comment Sour e This section is an empty social history section. [facility]D
--- OUTSIDE RECORDS SUMMARY | 2024-11-11 08:58 | XMS_ITS | Clinical Summary ---
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 255 g 06/02/2017 Active Social History Tobacco Use Types Packs/Day Years Used Date Smoking Tobacco: Never Assessed Comments Unknown Sex and Gender Information Value Date Recorded Sex Assigned at Not on file Legal Sex Female 8:02 PM CDT Gender Identity Not on file Sexual Orientation Not on file Plan of Treatment Health Maintenance Due Date Last Done Comments Hepatitis C Virus (HCV) Screening 1955 TdaP Immunization 1955 Cologuard 2002 Immunochemical Fecal Occult Blood 2002 Pneumococcal Immunization (5 0+ years) (1 of 1 - PCV) 2007 Zoster Immunization (1 of 2) 2007 Colonoscopy 08/07/2022 08/07/2017 Colorectal Cancer Screening 08/07/2022 SARS-COV-2 Immunization (1 - 2023- season) 2023 Influenza Immunization (#1) 2024 Respiratory Syncytial Virus (RSV) Immunization (Adult) (1 - 1-dose 75+ series) 01/06/2032 Hepatitis B Immunization Aged Out No longer eligible based on patient's age to complete this topic Human Papillomavirus (HPV) Immunization Aged Out No longer eligible b ased on patient's age to complete this topic Meningococcal Immunization (ACWY) Aged Out No longer eligible based on patient's age to complete this topic Rotavirus Immunization Aged Out No lo nger eligible based on patient's age to complete this topic Procedures Procedure Name Priority Date/Time Associated Diagnosis Comments HM COLONOSCOPY Routine 08/07/2017 from Last 3 Months or Most Recently Relevant to Health Maintenance Results * HM COLONOSCOPY (08/07/2017) Giovanni Conti DO PROCEDURE/MINOR SURGICAL ORDERA BLES Final Result from Last 3 Months or Most Recently Relevant to Health Maintenance Insurance [facility] Care Teams Beef Cattle Farmer Relationship Specialty Start Date End Date Ritesh Casanova MD [address] [place] [id number] PCP - General Family Medicine 05/23/17 Leanne Crouch MD 2022 [address] [address] Obstetrics & Gynecology 05/23/17
--- OUTSIDE RECORDS SUMMARY | 2024-11-11 08:58 | XMS_ITS | Clinical Summary ---
Author Organization [facility] Address [address] [place] [address] Care Team Providers Care Battery Wrecker Operator Name Role Phone Ritesh Casanova MD Primary Care Provider [phone] Allergies No known active allergies Medications calcium carbonate-vitami n D3 (Caltrate 600 plus D) 600 mg (1,500 mg)-800 unit tablet,chewableI ndications:Hypoc alcemia Prevention Take 1 capsule by mouth nightly 5 Active cholecalciferol (VITAMIN D-3) 2000 unit capsuleIndicatio ns:Vitamin D Deficiency Take 2,000 Units by mouth nightly 5 Active Lactobac no.41/Bifidobact no.7 (PROBIOTIC-10 ORAL) Take 1 capsule by mouth nightly 5 Active ProAir HFA 90 mcg/actuation inhaler Inhale 1 puff as needed for shortness of breath 0 Active Anoro Ellipta 62.5-25 mcg/actuation blister with deviceIndication s:Bronchospasm Prevention with COPD Inhale 1 puff every morning 0 Active clotrimazole-bet amethasone (LOTRISONE) creamIndications :skin inflammation Apply 1 application topically as needed 1 Active amoxicillin 500 mg capsule TAKE 4 CAPSULES BY MOUTH 1 HOUR PRIOR TO DENTAL APPOINTMENT 2 Active Estring 2 mg (7.5 mcg /24 hour) vaginal ring 2 Active amLODIPine (NORVASC) 5 mg tablet 2 Active clobetasoL (TEMOVATE) 0.05 % ointment 2 Active Active Problems Problem Noted Date Diagnosed Date Cholesteatoma of left external auditory canal Disorder of left external ear 04/02/2022 Sensorineural hearing loss (SNHL) of both ears 0 04/02/2022 HTN (hypertension) 10/19/2020 Primary osteoarthritis of left hip 09/25/2020 Overview (09/25/2020): Added automatically from request for surgery [id number] Primary osteoarthritis of both hips 09/25/2020 Mixed restrictive and obstructive lung disease 0 03/30/2020 Multiple lung nodules 03/30/2020 Abnormal PFT 09/29/2019 Cigarette nicotine dependence in remission 09/28 KHAN (dyspnea on exertion) 09/29/2019 Hx of radiation therapy 09/29/2019 Breast cancer, female 07/13/2014 Encounters Date Type Department Care Team Description 09/08/2024 Telephone [facility] Medicine Otolaryngology [address] [place] [address] Maria Esther Dallas, from Last 3 Months Immunizations Immunization Administration Dates Next Due Influenza, Quadrivalent, Spl it, Intramuscular 12/21/2019,12/08/2018 Influenza, Quadrivalent, Spl it, Preservative Free, Intramuscular 12/08/2018 Influenza, Unspecified 12/21/2019,2014,07/14/2013,01/13 Amos (J&J) SARS-CoV-2 Vaccination 05/23/2020 Tdap 07/27/2013 Surgical History Surgery Date Site/Laterality Comments WRIST FRACTURE SURGERY [place] FLUORO GUIDED INJECTION HIP LEFT 06/16/2020 Left TUBAL LIGATION MASTECTOMY Right BONE RESECTION, RIB PORTACATH PLACEMENT BREAST SURGERY Oct 1999 Medical History Medical History Date Comments Arthritis Cancer (HCC) Right Emphysema of lung Hypertension Heart disease 2018 Tinnitus 2001 HL (hearing loss) 2001 History of chemotherapy 1999 Ear problems 2021 Family History Medical History Relation Name Comments Hypertension Brother Older brother Lung disease Father Scoliosis Father Stroke Maternal Grandmother grandmother Coronary artery disease Mother mom Heart disease Mother mom Hypertension Mother mom Lung disease Mother mom Snoring Mother mom Cancer Sister older sister Gout Sister older sister Hypertension Sister older sister Anesthesia problems Neg Hx Relation Name Status Comments Brother Older brother Father Maternal Grandmother grandmother Mother mom Sister older sister Social History Tobacco Use Types Packs/Day Years Used Date Smoking Tobacco: Former Cigarettes 1 46.8 1 973 - 12/16/2018 Smokeless Tobacco: Never Alcohol Use Standard Drinks/Week Comments Yes 0 (1 standard drink = 0.6 oz pur e alcohol) AUDIT-C Answer Date Recorded Q1: How often do you have a drink containing alc ohol? 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 Gender Identity Female 09/24/2020 4:46 PM CDT Sexual Orientation Not on file Occupation Industry Job Start Date Job End Date ret Not on file Not on file Not on file Obstetrics History Last Filed Vital Signs Vital Sign Reading Time Taken Comments Blood Pressure 122/63 10/25/2020 7:42 AM CDT Pulse 69 10/25/2020 7:42 AM CDT Temperature 36.6 C (97.9 F) 10/25/2020 7:42 AM CDT Respiratory Rate 16 10/25/2020 7:42 AM CDT Oxygen Saturation 96% 10/25/2020 7:42 AM CDT Inhaled Oxygen Concentration - - Weight 77.6 kg (171 lb) 10/24/2020 8:16 AM CDT Height 170.2 cm (5' 7) 10/24/2020 8:16 AM CDT Body Mass Index 26.78 10/24/2020 8:16 AM CDT Plan of Treatment Health Maintenance Due Date Last Done Comments Breast Cancer Screening-Mammogram 1955 Colon Cancer Screening-Colonoscopy 1955 Hepatitis C Screening 1955 Osteoporosis Screening-Bone Density Scan 1955 Hepatitis B Screening 1975 Pneumococcal vaccine 65+ (1 of 2 - PCV) 01/06/1976 Lung Cancer Screening 2007 Zoster Vaccine (1 of 2) 2007 Depression Screening 09/25/2021 09/25/2020, 09/26/19 21 Fall Risk Assessment 10/25/2021 10/25/2020 Well Visit 65+ 2022 DTaP/Tdap/Td Vaccine (2 - Td or Tdap) 07/28/2023 07/27/2013 Covid-19 Vaccine (2 - 2023-2 5 season) 2023 05/23/2020 Influenza Vaccine (#1) 2024 , 12/21/2019, 12/08/2018, Additional history exists Medical Devices Implanted Type Area Aircraft Maintenance Manager Device Identifier Shelf Expiration Date Model / Serial / Lot [employer] [id number] Acetabular Bi-Mentum Od51mm Femoral Proximal Press Fit - [id number] Implanted:Qty: 1 on 10/24/2020 by Taras Mckoy MD at [facility] Left: Hip [employer] [id number] 04/16/2024 [id number] / / [id number] [employer] [id number] Actis L107 Mm Collar Hip 6 High Offset Stem Femoral - [id number] Implanted:Qty: 1 on 10/24/2020 by Taras Mckoy MD at [facility] Left: Hip [employer] [id number] 08/14/2030 [id number] / / [id number] [employer] [id number] Articul/Ryley 28mm Cementless Hip +5mm 12/14 Taper Head Femoral Latex Free - [id number] Implanted:Qty: 1 on 10/24/2020 by Taras Mckoy MD at [facility] Left: Hip [employer] [id number] 07/14/2025 [id number] / / [id number] [employer] [id number] Liner Acetabular Bi-Mentum Polyethylene Od51mm Id28mm Femoral Proximal - [id number] Implanted:Qty: 1 on 10/24/2020 by Taras Mckoy MD at [facility] Left: Hip [employer] [id number] 03/16/2025 [id number] / / [id number] Insurance [facility] LIFE MEDICARE [employer] [facility] CLAIMS [facility] CLAIMS Advance Directives For more information, please contact: [phone] Documents on File Type Date Recorded Patient Crimping Press Operator Expl anation ADVANCE DIRECTIVE 10/26/2020 1:38 PM Power of Short Order [employer] ADVANCE DIRECTIVE 10/24/2020 7:54 AM * Full Code (Latest Code Status on File) Date Activated Date Inactivated Comments 10/24/2020 12:52 PM 10/25/2020 4:13 PM Care Teams Battery Wrecker Operator Relationship Specialty Start Date End Date Ritesh Casanova MD [address] [place] [id number] PCP - General Family Medicine 06/22/24
--- OUTSIDE RECORDS SUMMARY | 2024-11-11 08:58 | XMS_ITS ---
Author Organization [facility] Address [address] [place] [address] Care Team Providers Care Cell Changer Name Role Phone Ritesh Casanova MD Primary Care Provider [phone] Active Problems Problem Noted Date Diagnosed Date Cholesteatoma of left external auditory canal Disorder of left external ear 04/02/2022 Sensorineural hearing loss (SNHL) of both ears 0 04/02/2022 HTN (hypertension) 10/19/2020 Primary osteoarthritis of left hip 09/25/2020 Overview (09/25/2020): Added automatically from request for surgery [id number] Primary osteoarthritis of both hips 09/25/2020 Mixed restrictive and obstructive lung disease 0 03/30/2020 Multiple lung nodules 03/30/2020 Abnormal PFT 09/29/2019 Cigarette nicotine dependence in remission 09/28 KHAN (dyspnea on exertion) 09/29/2019 Hx of radiation therapy 09/29/2019 Breast cancer, female 07/13/2014 Current Treatment and Therapy Plans No current plan information found. Past Treatment and Therapy Plans No past plan information found. Lifetime Dose Tracking * Chemical Lifetime Dose Automatic Entry Manual Entr y Fluoro Time 0.1 minutes 0.1 minutes 0 minutes Air kerma at the reference point (Ka,r) 1.18 mGy 1 .18 mGy 0 mGy
--- OUTSIDE RECORDS SUMMARY | 2024-11-11 08:58 | XMS_ITS | Encounter Summary ---
Author Organization [facility] Address [address] [place] [address] Care Team Providers Care Women'S Soccer Coach Name Role Phone Lorena Rodrigues Primary Care Provider [phone] Ritesh Casanova MD Primary Care Provider [phone] Encounter Details Date Type Department Care Team (Late st Contact Info) Description 05/26/2020 Telephone [facility] Radiology [address] [facility] [address] [place] [address] Clarice Joseph, RT Social History Tobacco Use Types Packs/Day Years Used Date Smoking Tobacco: Former Cigarettes 1 45 1 - 12/16/2018 Smokeless Tobacco: Never Alcohol Use Standard Drinks/Week Comments Yes 0 (1 standard drink = 0.6 oz pur e alcohol) Comments Unknown Sex and Gender Information Value Date Recorded Sex Assigned at Not on file 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 Gender Identity Female 09/24/2020 4:46 PM CDT Sexual Orientation Not on file Occupation Industry Job Start Date Job End Date ret Not on file Not on file Not on file documented as of this encounter Plan of Treatment Not on file documented as of this encounter Visit Diagnoses Not on filedocumented in this encounter Care Teams Women'S Soccer Coach Relationship Specialty Start Date End Date Lorena Rodrigues PA [address] [place] [address] PCP - General Gastroenterology 12/22/19 06/21/24 Ritesh Casanova MD [address] [place] [address] PCP - General Family Medicine 06/22/24 documented as of this encounter
--- OUTSIDE RECORDS SUMMARY | 2024-11-11 08:58 | XMS_ITS | Clinical Summary ---
Author Organization [facility] Address [address] [place] [address] Phone Care Team Providers Care Solution Lead Name Role Phone Alexi Stone MD Primary Care Provider [phone] Allergies No known active allergies Medications CALCIUM ORAL Take 1,200 mL by mouth daily. Active Active Problems No known active problems Family History Medical History Relation Name Comments Hypertension Brother Stroke Maternal Grandmother Hypertension Mother Relation Name Status Comments Brother Father Maternal Grandmother Mother Alive Social History Tobacco Use Types Packs/Day Years Used Date Smoking Tobacco: Every Day Cigarettes 1 40 Smokeless Tobacco: Never Tobacco Cessation:Ready to Q uit: Yes Alcohol Use Standard Drinks/Week Comments Yes 0 (1 standard drink = 0.6 oz pur e alcohol) Comments No Sex and Gender Information Value Date Recorded Sex Assigned at Not on file Legal Sex Female 1:31 PM CDT Gender Identity Not on file Sexual Orientation Not on file Occupation Industry Job Start Date Job End Date Not on file Not on file Not on file Not on file Last Filed Vital Signs Vital Sign Reading Time Taken Comments Blood Pressure 127/81 07/01/2013 10:56 AM CDT Pulse 95 07/01/2013 10:56 AM CDT Temperature 36.4 C (97.6 F) 06/14/2013 10:04 AM CDT Respiratory Rate 24 06/14/2013 2:00 PM CDT Oxygen Saturation 96% 06/14/2013 2:00 PM CDT Inhaled Oxygen Concentration - - Weight 70.3 kg (155 lb) 07/01/2013 10:56 AM CDT Height 172.7 cm (5' 8) 07/01/2013 10:56 AM CDT Body Mass Index 23.57 07/01/2013 10:56 AM CDT Plan of Treatment Health Maintenance Due Date Last Done Comments DTAP/TDAP/TD VACCINES (1 - Tdap) 01/06/1976 PNEUMOCOCCAL VACCINE 50+ YEARS (1 of 2 - PCV) 01/05/19 76 BREAST CANCER SCREENING 1997 COLORECTAL SCREENING 2002 Colorectal Cancer Screening 2002 FIT-DNA Q 3 years 2002 FIT/FOBT Q 1 year 2002 Flex Sig/CT Colonography Q 5 years 2002 ZOSTER VACCINE (1 of 2) 2007 OSTEOPOROSIS SCREENING 2022 INFLUENZA VACCINE (#1) 2024 RSV VACCINE (60+ or ) (1 - 1-dose 75+ series) 01/06/2032 Insurance [facility] Advance Directives For more information, please contact: [phone] * Full Code (Latest Code Status on File) Date Activated Date Inactivated Comments 06/14/2013 12:07 PM 06/14/2013 5:57 PM * Full Code Date Activated Date Inactivated Comments 06/14/2013 9:37 AM 06/14/2013 12:07 PM Care Teams Solution Lead Relationship Specialty Start Date End Date Alexi Stone MD PCP - General Hematology and Oncology 05/31/13
== END 2024-11-11 08:54 | disposition home or self-care (01) ==
LOC: ANHFOHIMG 08:55
PROVIDERS: Visit Provider Obstetrics & Gynecology Gynecology
DX: M85.851 Other specified disorders of bone density and structure, right thigh (principal); Z78.0 Asymptomatic menopausal state
CPT/HCPCS: 77080